=== PATIENT | male | born 1955 | race Caucasian/White ===

== ENCOUNTER → 2017-05-13 | Outpatient (CLI) | payer OTHER ==
[~2017-05-13] VITALS: Ht 170.2 cm; Wt 76.2 kg
[~2017-05-13] MED LIST: ASPIR 8181 M1 PO; ATORVASTATIN CA40 MG PO; NITROGLYCERIN0.4 MG PO; NORCO 5-325 TA1 EACH PO; PACERONE 200 M200 MG PO; TOPROL XL25 MG PO; XANAX 0.5 MG0.5 MG PO
--- NOTE | ~2017-05-13 | CATHLAB ---
[facility] [address] [place] [address] INVASIVE PROCEDURE REPORT Name: MARLIN COSBY Room #: REG Karyna#: [id number] Admission: 05/13/17 Attend Phys: Harish Minaya, Discharge: Date of : 53 Date of Service: 05/13/17 0938 Report #: [id number] THIS REPORT FOR: //name// APPROVED REPORT Patient Details Patient Status: Out-Patient Room #: The patient is a 61 year-old male Event Personnel Harish Minaya Cupola Tapper, Rita Muniz, Jevon Gunderson, Ever Acevedo RN, Laura Yang Procedures Performed Art Access - R femoral artery* 90991 Initial Mod Sed Same Phys/QHP Gr5y 987019 27744 Mod Sed Same Phys/QHP Ea [id number] Left Heart Cath w/or w/o Coronaries [id number] [facility] Hemostasis w/ Mynx Procedure Narrative The patient was brought electively to the Cardiac Catheterization Laboratory and was prepped and draped in a sterile manner. The Right Groin^ was infiltrated with 1% Lidocaine subcutaneous anesthesia. A PINNACLE 6FR Sheath #[id number] sheath was inserted into the RFA^. Coronary angiography was performed using coronary diagnostic catheters. The right coronary system was accessed and visualized with a JR 4 catheter. The left coronary system was accessed and visualized with a JL 4 catheter. The left ventricle was accessed and visualized with a Pigtail catheter. Left ventricular/Aortic Valve gradient assessed via catheter pullback. Left ventriculogram was performed in JACOME projection. Pre-demployment femoral angiogram was performed . Closure device was deployed with a 6 Fr Mynx. The patient tolerated the procedure well and there were no complications associated with the procedure. There was no hematoma. Intraoperative Conscious Sedation Sedation start time: 07:51 Case end Time: 08:24 Fentanyl 25.0 mcg Versed 1.5 mg Fluoro Time: 2.37 minutes Dose: DAP 4530.00 cGycm2 588 mGy Contrast Type and Amount: Omnipaque 150 ml Diagnostic Cath [address] [address] INVASIVE PROCEDURE REPORT Name: HARJEETNEYMARMARLIN LAURIE Room #: [id number] Admission: 05/13/17 Attend Phys: Harish Minaya, Discharge: Date of : 53 Date of Service: 05/13/17 0938 Report #: [id number] Left Main Eccentric 50-60% LM stenosis. Dampening with catheter engagement LAD Moderate size vessel extending to distal anterior wall. Mild-moderate mid LAD plaquing (30-40%) Diagonal 1 Mild proximal plaquing Circumflex Mild plaquing OM1 Moderate size, angiographically normal OM2 Moderate size, angiographically normal Right Coronary Large, dominant. 85% mid RCA stenosis 40-50% distal RCA stenosis prior to large PDA and PL branches R PDA Normal RPLV Mild plaquing Left Ventriculography The left ventricle is normal in size with contractility. The left ventricular ejection fraction is estimated to be 60-65%. Left ventricular wall motion abnormalities are not present. There is no mitral insufficiency. Hemodynamics The aortic pressure is 106/47 mmHg with a mean of 76 mmHg. The left ventricular pressure is 126/-3 mmHg with a mean of mmHg. The left ventricular end diastolic pressure is 8 mmHg. Conclusion 1. Normal global and regional systolic funciton. EF 65% 2. Eccentric 60% LM stenosis 3. LAD, Cx plaquing 4. 85% mid RCA stensosis (dominant) Recommendations CABG <ELECTRONICALLY SIGNED> By: Harish Minaya MD, FACC 05/13/17937 7 7 Harish Minaya MD, FACC /INF
--- NOTE | ~2017-05-13 | 2DMMODE ---
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 Room #: 3 Status: routine BSA: 1.88 HR: 70 bpm BP: 121/71 mmHg Other Information Study Quality: Adequate Indications CAD 2D Dimensions RVDd: 31.99 mm LVEF(%): 63.00 (>50%) IVSd: 10.42 (7-11mm) LVOT Diam: 20.73 (18-24mm) LVDd: 41.14 mm PWd: 9.04 (7-11mm) Ascending Ao: 28.35 (22-36mm) LVDs: 27.27 (25-40mm) Aortic Root: 30.68 mm IVC: 17.00 mm Howell's LVEF: 63.00 % Volumes Left Atrial Volume (Systole) Single Plane 4CH: 20.71 mL Single Plane 2CH: 20.73 mL LA ESV Index: 14.00 mL/m2 Aortic Valve AoV Peak Young.: 1.20 m/s AO Peak Gr.: 5.73 mmHg LVOT Max P.20 mmHg LVOT Max V: 1.02 m/s DORINDA Vmax: 2.89 cm2 Mitral Valve E/A Ratio: 1.1 MV Decel. Time: 238.54 ms MV E Max Young.: 0.76 m/s [facility] [place] [address] 2 D/M-MODE ECHOCARDIOGRAM Name: HARJEETMARLIN LAURIE Room #: [facility] Karyna#: [id number] Admission: 05/13/17 Attend Phys: Harish Minaya, Discharge: Date of : 53 Date of Service: 05/13/17 1158 Report #: [id number] MV A Young.: 0.67 m/s MV PHT: 69.18 ms IVRT: 96.89 ms Pulmonary Valve PV Peak Young.: 0.99 m/s PV Peak Gr.: 3.95 mmHg Pulmonary Vein P Vein S: 0.64 m/s P Vein A: 0.29 m/s P Vein D: 0.37 m/s P Vein A Dur.: 110.7 msec P Vein S/D Ratio: 1.73 Left Ventricle The left ventricle is normal size. There is normal LV segmental wall motion. There is normal left ventricular wall thickness. The left ventricular systolic function is normal. The left ventricular ejection fraction is within the normal range. LVEF is 60-65%. The left ventricular diastolic function is normal. Right Ventricle The right ventricle is normal size. The right ventricular systolic function is normal. Atria The left atrium size is normal. The right atrium size is normal. Aortic Valve The aortic valve is normal in structure. No aortic regurgitation is present. There is no aortic valvular stenosis. Mitral Valve The mitral valve is normal in structure. Trace mitral regurgitation. No evidence of mitral valve stenosis. Tricuspid Valve The tricuspid valve is normal in structure. There is no tricuspid valve regurgitation noted. Pulmonic Valve The pulmonary valve is normal in structure. There is no pulmonic valvular regurgitation. Great Vessels The aortic root is normal in size. IVC is normal in size and collapses >50% with inspiration. [facility] [address] [place] [address] 2 D/M-MODE ECHOCARDIOGRAM Name: MARLIN COSBY Room #: REG CL Karyna#: [id number] Admission: 05/13/17 Attend Phys: Harish Minaya, Discharge: Date of : 53 Date of Service: 05/13/17 1158 Report #: [id number] Pericardium There is no pericardial effusion. <Conclusion> The left ventricular systolic function is normal. There is normal LV segmental wall motion. LVEF is 60-65%. The aortic valve is normal in structure. No aortic regurgitationopr stenosis The mitral valve is normal in structure. Trace mitral regurgitation. Pulmonary artery pressure could not be reliably ascertained There is no pericardial effusion. <ELECTRONICALLY SIGNED> By: Harish Minaya MD, FACC 05/13/17 1158 1158 1158 Harish Minaya MD, FACC /INF
[2017-05-13 07:05] VITALS: BP 129/75
== END | disposition home or self-care (01) ==
LOC: CATH 06:33
DX: I25.10 Atherosclerotic heart disease of native coronary artery without angina pectoris (principal); I34.0 Nonrheumatic mitral (valve) insufficiency; I65.23 Occlusion and stenosis of bilateral carotid arteries; I11.9 Hypertensive heart disease without heart failure; E78.5 Hyperlipidemia, unspecified; F41.8 Other specified anxiety disorders; F17.210 Nicotine dependence, cigarettes, uncomplicated; Z98.890 Other specified postprocedural states; Z82.49 Family history of ischemic heart disease and other diseases of the circulatory system; Z79.82 Long term (current) use of aspirin; Z79.899 Other long term (current) drug therapy

== ENCOUNTER → 2017-05-25 | Outpatient (CLI) | payer OTHER ==
--- NOTE | ~2017-05-25 | HC ---
[facility] [address] CONSULTATION Name: MARLIN COSBY Room #: REG KAYLIN Karyna#: [id number] Admission: 05/25/17 Attend Phys: Cami Angulo Discharge: Date of : 53 Report #: [id number] THIS REPORT FOR: //name// CC: Cami Angulo [facility] physician/PCP Mirella Matthew MD REASON FOR CONSULTATION: Coronary artery disease. HISTORY OF PRESENT ILLNESS: The patient is a 61-year-old gentleman with a history of tobacco dependency, dyslipidemia and coronary artery disease. I originally saw him in early April with a recent history of exertional chest tightness. This also occurred under emotional stress and was associated with diaphoresis and shortness of breath. 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 Ultimately, coronary angiography was undertaken. This demonstrated normal left ventricular systolic function and eccentric left main stenosis of 60%, mild plaquing in the LAD and circumflex and 85% mid right coronary stenosis. Arrangements were made for surgical revascularization. The patient denies heart failure symptoms including orthopnea, paroxysmal nocturnal dyspnea or lower extremity edema. There is no history of diabetes or family history of premature coronary artery disease. ALLERGIES: PENICILLIN. MEDICATIONS: Atorvastatin 40 mg daily, metoprolol 50 mg daily, atorvastatin. PAST MEDICAL HISTORY: Medical records have been reviewed and include a history of wisdom tooth extraction, hypertension and dyslipidemia. SOCIAL HISTORY: Current smoker. He has a 83-skxd-gehs smoking history. Drinks 2-3 beers a day. FAMILY HISTORY: Mother with dementia. Father with heart disease. REVIEW OF SYSTEMS: All systems negative except as that noted above. PHYSICAL EXAMINATION: GENERAL: He is a pleasant gentleman in no distress. VITAL SIGNS: Blood pressure is 140/80, heart rate of 90 and regular, he is 5 feet 7 inches tall, 168 pounds. HEENT: There are neither xanthelasma, subcutaneous xanthomata, oral mucosal or digital cyanosis or kyphoscoliosis present. CHEST: Clear to auscultation and percussion. CARDIAC: Regular rate and rhythm with normal S1, S2. No murmurs, rubs. ABDOMEN: Soft and nontender. EXTREMITIES: Without pedal edema. Radial pulses are 2+. NEUROLOGIC: Alert with a nonfocal exam. [facility] [address] [place] [address] CONSULTATION Name: MARLIN COSBY Room #: REG SARAYJoseph Hahn.#: [id number] Admission: 05/25/17 Attend Phys: Cami Angulo Discharge: Date of : 53 Report #: [id number] LABORATORY DATA: Total cholesterol 298, LDL 207, triglycerides 294, HDL 31. IMAGING: EKG sinus rhythm with leftward axis, inferior T-wave abnormality. IMPRESSION: 1. Coronary artery disease including left main stenosis. 2. Dyslipidemia. 3. Hypertension. 4. Tobacco dependency. RECOMMENDATIONS: 1. Perioperative beta blockade. Continued efforts towards aggressive risk factor modification including smoking cessation. 2. I will follow along with you in the becca-procedural setting. Thank you for asking me to participate in the patient's care. <ELECTRONICALLY SIGNED> By: Harish Minaya MD, FACC 06/07/17 1623 1703 2235 Harish Minaya MD, FACC /nt
--- NOTE | ~2017-05-25 | EKG ---
[place] [address] [address] [place] [address] ELECTROCARDIOGRAM REPORT Name: HARJEETNEYMARMARLIN LAURIE Room #: REG KAYLIN [place]#: [id number] Admission: 05/25/17 Attend Phys: Cami Angulo Discharge: Date of : 53 Report #: [id number] THIS REPORT FOR: //name// [facility] Test Date: 2017-05-25 Test Time: 09:22:47 Pat Name: MARLIN COSBY Department: Room: Gender: M Freight Rate Analyst: blanca : 1955 Requested By: Rene Olivarez Order Number: [id number] MD: Harish Minaya Measurements Intervals [place] Rate: 58 P: 46 VT: 148 QRS: -34 QRSD: 99 T: -18 QT: 408 QTc: 401 Interpretive Statements Sinus bradycardia Left axis deviation Nonspecific T wave abnormality No previous ECG available for comparison Electronically Signed On 05-25-2017 18:26:21 PRINTING AND STAMPING SUPERVISOR by Harish Minaya [email or web address] <ELECTRONICALLY SIGNED> By: Harish Minaya MD, [facility] 05/25/17 1826 0922 09 Harish Minaya MD, FACC /EPI
== END ==
LOC: ULTRA 08:04
DX: Z01.818 Encounter for other preprocedural examination (principal)

== ENCOUNTER 2017-05-30 05:27 | Inpatient (IN) | payer OTHER ==
[2017-05-25 09:27] LABS: ABSOLUTE NEUTROPHILS 6.5 thou/uL (1.4-8.2); BASOPHILS 0.9 % (0.0-2.0); EOSINOPHILS 1.2 % (0.0-3.0); HEMATOCRIT 49.4 % (42.0-52.0); HEMOGLOBIN 17.3 gm/dL (14.0-18.0); LYMPHOCYTES 31.7 % (24.0-44.0); MCH 33.7 pg (26.0-34.0); MCV 96.3 fL (80.0-100.0); MONOCYTES 7.2 % (1.0-8.0); PLATELET COUNT 309 thou/uL (150-400); RBC 5.13 mil/uL (4.50-6.00); RDW 12.9 % (10.5-14.5); WBC 10.9 thou/uL (4.0-11.0)
[2017-05-25 09:29] LABS: URINE BILIRUBIN NEGATIVE (Negative); URINE BLOOD NEGATIVE (Negative); URINE CLARITY CLEAR; URINE COLOR YELLOW; URINE GLUCOSE-RANDOM* NEGATIVE (Negative); URINE KETONES NEGATIVE (Negative); URINE LEUKOCYTES-REFLEX NEGATIVE (Negative); URINE NITRITE-REFLEX NEGATIVE (Negative); URINE PROTEIN (DIPSTICK) NEGATIVE (Negative); URINE UROBILINOGEN 0.2 E.U./dl (0.2-1.0)
[2017-05-25 09:39] LABS: APTT 31.1 Seconds (24.5-32.8); PROTIME 10.7 Seconds (9.3-11.4)
[2017-05-25 09:47] LABS: ALBUMIN 3.8 g/dL (3.4-5.0); CALCIUM 9.1 mg/dL (8.5-10.1); POTASSIUM 4.5 mmol/L (3.5-5.1); TOTAL BILIRUBIN 0.6 mg/dL (<0.1-1.0)
[2017-05-26 04:11] LABS: GLYCOHEMOGLOBIN (HGB A1C) 5.6 % (4.8-5.6)
[~2017-05-30] VITALS: Ht 170.2 cm; Wt 78.9 kg
--- NOTE | ~2017-05-30 | EKG ---
[address] [place] [address] ELECTROCARDIOGRAM REPORT Name: MARLIN COSBY Room #: 245-P ADM IN M.R.#: [id number] Admission: 05/31/17 Attend Phys: Rene Olivarez MD Discharge: Date of : 53 Report #: [id number] THIS REPORT FOR: //name// [facility] Test Date: 2017-06-01 Test Time: 23:17:48 Pat Name: MARLIN COSBY Department: Room: [facility] Gender: M Research Support Specialist: sergiok : 1955 Requested By: Joselo Lay Order Number: [id number] MD: Harish Minaya Measurements Intervals [place] Rate: 98 P: 14 SC: 138 QRS: -35 QRSD: 86 T: -4 QT: 343 QTc: 438 Interpretive Statements Sinus rhythm Left axis deviation Borderline T wave abnormalities Compared to ECG 06/01/2017 06:03:46 Left-axis deviation now present Atrial premature complex(es) no longer present Electronically Signed On 06-02-2017 8:13:27 RECEPTIONIST NURSE by Harish Minaya [email or web address] <ELECTRONICALLY SIGNED> By: Harish Minaya MD, [facility] 06/02/17 0813 2317 2317 Harish Minaya MD, [facility] /EPI
--- NOTE | ~2017-05-30 | EKG ---
[address] [place] [address] ELECTROCARDIOGRAM REPORT Name: MARLIN COSBY Room #: 245-P ADM IN M.R.#: [id number] Admission: 05/31/17 Attend Phys: Rene Olivarez MD Discharge: Date of : 53 Report #: [id number] THIS REPORT FOR: //name// [facility] Test Date: 2017-06-01 Test Time: 06:03:46 Pat Name: MARLIN COSBY Department: Room: 245 P Gender: M Wireless Cellular Technician: RADHA : 1955 Requested By: Cami Angulo Order Number: [id number] MD: Harish Minaya Measurements Intervals [place] Rate: 76 P: 25 WI: 136 QRS: -14 QRSD: 103 T: -45 QT: 431 QTc: 485 Interpretive Statements Sinus rhythm Atrial premature complex Nonspecific T abnormalities, diffuse leads Borderline prolonged QT interval Compared to ECG 05/25/2017 09:22:47 Atrial premature complex(es) now present Sinus bradycardia no longer present Left-axis deviation no longer present Electronically Signed On 06-01-2017 9:09:23 TRIMMER CLIMBER by Harish Minaya [email or web address] <ELECTRONICALLY SIGNED> By: Harish Minaya MD, [facility] 06/01/1709 2 2 Harish Minaya MD, [facility] /EPI
--- NOTE | ~2017-05-30 | O ---
[facility] [place] [address] OPERATIVE REPORT Name: MARLIN COSBY Room #: 203-P [facility] IN M.R.#: [id number] Admission: 05/31/17 Attend Phys: Rene Olivarez MD Discharge: 06/05/17 Date of : 53 Report #: [id number] THIS REPORT FOR: //name// CC: Harish Minaya MD [facility] unknown Rene Olivarez DATE OF SERVICE: 05/31/2017 PREOPERATIVE DIAGNOSES: Coronary artery disease, angina, normal left ventricular systolic function. FINAL DIAGNOSES: Coronary artery disease, angina, normal left ventricular systolic function. OPERATIVE PROCEDURE PERFORMED: 1. Coronary artery bypass grafting x 4 with left internal mammary artery to the LAD, radial artery Y graft to diagonal vessel, saphenous vein graft to OM, and the radial artery graft to PDA. 2. Left radial artery harvest. SURGEON: Rene Olivarez MD. JUTE BAG CLIPPER: Jose Dobbs and BETTY Fowler. ANESTHESIA: General. OPERATIVE INDICATIONS: The patient is a 61-year-old male who has presented with symptoms of exertional angina. He has a history of hypertension and hyperlipidemia. His evaluation was performed including left heart catheterization noting evidence of multivessel coronary artery disease and left main coronary artery disease. The patient is admitted at this time and brought to the operating room now for coronary artery bypass grafting. OPERATIVE SUMMARY: The patient was brought to the operating room, placed on the OR table in supine position. After anesthesia was induced via general endotracheal route and monitoring lines have been positioned, the patient was prepped and draped in sterile fashion with chlorhexidine. I first harvested radial artery from the left forearm using a Harmonic scalpel. Concomitantly, saphenous vein was harvested from left lower extremity using endoscopic technique. A median sternotomy incision was then performed. The left internal mammary artery was harvested in standard fashion. I then placed a sternal retractor, opened the pericardium and systemically anticoagulated the patient with heparin. Cannulae were placed in ascending aorta and the right atrium. An antegrade cardioplegic cannula was positioned and cardiopulmonary bypass was begun. A retrograde cardioplegic cannula was positioned and then under low flow [facility] [address] [place] [address] OPERATIVE REPORT Name: HARJEETNEYMARMARLINLESLEY SULLIVNA Room #: 203-P [facility] IN .R.#: [id number] Admission: 05/31/17 Attend Phys: Rene Olivarez MD Discharge: 06/05/17 Date of : 53 Report #: [id number] conditions, the aorta was crossclamped and the heart was arrested with approximately 1 liter of warm antegrade cold cardioplegia, followed by 500 mL cold retrograde cardioplegia. This was augmented with topical ice slush. Diastolic arrest was achieved and maintained throughout this operation with intermittent doses of cold antegrade and retrograde cardioplegia as well as cardioplegia given down grafts and topical ice slush. We first opened up the PDA vessel. This is a large vessel and close to 2 mm in size. A distal anastomosis was carried out in end-to-side fashion with 7-0 Prolene utilizing the radial artery. Next, we opened up the obtuse marginal vessel, a small vessel, 1.5 mm at best. A distal anastomosis was performed in end-to-side fashion using reverse saphenous vein graft. The reverse saphenous vein graft was brought around to the ascending aorta in a proximal fashion with 6-0 Prolene after a 4.8 punch aortotomy was created. Next, we opened up the diagonal vessel. We sewed on to it a remaining segment of radial artery using 7-0 Prolene. The mammary was then brought into the field and prepared for anastomosis. It was of good size and had good flow. The internal mammary artery was anastomosed to the LAD in the distal aspect of its mid segment. This was done with 7-0 Prolene. The pedicle was tacked to the epicardium with 6-0 Prolene. Next, we performed an anastomosis of the radial artery segment to the diagonal vessel to the left internal mammary artery. This was performed with 7-0 Prolene. We then gave warm cardioplegia both retrograde and antegrade. Care was taken to deair the ascending aorta and the vein graft and the arterial graft. Under low flow conditions, the aortic crossclamp was released to begin the period of reperfusion. The patient was rewarmed to 37 degree centigrade. Atrial and ventricular pacing wires were placed and we gave 3 successive doses of calcium and a single dose of magnesium all over 3-5 minute intervals. After defibrillation, the patient returned to sinus bradycardia and required atrial pacing at a rate of 80. After a suitable period of reperfusion, the lungs were reinflated. The patient was weaned from cardiopulmonary bypass without inotropic support. Protamine was given to reverse the heparin, decannulation was effected. Once satisfactory hemostasis was achieved, we placed 2 32-Singaporean chest tubes in anterior mediastinum and 24 Myke drain in left pleural space. They were all brought out through separate stab incisions. The sternum was closed with #7 wire. The fascia, subcutaneous and skin were closed in multiple layers with absorbable suture. The procedure was completed. The patient was taken to the CV ICU in stable condition. The cardiopulmonary bypass time is listed at 154 minutes. CROSS CLAMP TIME: 132 minutes. <ELECTRONICALLY SIGNED> By: Rene Olivarez MD 06/21/17 1746 1552 1727 Rene Olivarez MD /valentin
[~2017-05-30 05:27] MED LIST changes: -NORCO 5-325 TA1 EACH PO; -PACERONE 200 M200 MG PO
[2017-05-31 07:37] VITALS: BP 141/80
[2017-05-31 13:06] LABS: MCH 33.4 pg (26.0-34.0); MCHC 34.5 g/dL (28.0-37.0); MCV 96.8 fL (80.0-100.0); RBC 3.4 mil/uL (4.50-6.00); RDW 12.6 % (10.5-14.5); WBC 17.2 thou/uL (4.0-11.0)
[2017-05-31 13:07] LABS: HEMATOCRIT 32.9 % (42.0-52.0); HEMOGLOBIN 11.4 gm/dL (14.0-18.0)
[2017-05-31 13:28] LABS: INR 1.4; PROTIME 14.7 Seconds (9.3-11.4)
[2017-05-31 13:29] LABS: APTT 24.9 Seconds (24.5-32.8); FIBRINOGEN 166.8 mg/dL (210-360)
[2017-05-31 13:48] LABS: POC BE 1 mmol/L (-2.0 to +3.0); POC CA IONIZED 4.6 mg/dL (4.5-5.3); POC GLUCOSE 106 mg/dL (70-99); POC HCO3 25.8 mmol/L (22.0-26.0); POC HEMOGLOBIN 15.3 g/dL (14.0-18.0); POC POTASSIUM 4.8 mmol/L (3.5-5.1); POC SODIUM 137 mmol/L (136-145); POC pCO2 40.4 mmHg (35.0-45.0); POC pH 7.413 (7.360-7.450)
[2017-05-31 13:48] LABS: POC BE -2 mmol/L (-2.0 to +3.0); POC CA IONIZED 4.2 mg/dL (4.5-5.3); POC GLUCOSE 122 mg/dL (70-99); POC HEMOGLOBIN 14.6 g/dL (14.0-18.0); POC POTASSIUM 5.1 mmol/L (3.5-5.1); POC SODIUM 137 mmol/L (136-145); POC pCO2 36.6 mmHg (35.0-45.0); POC pH 7.407 (7.360-7.450)
[2017-05-31 13:53] LABS: POC BE 0 mmol/L (-2.0 to +3.0); POC CA IONIZED 7.8 mg/dL (4.5-5.3); POC GLUCOSE 118 mg/dL (70-99); POC HEMOGLOBIN 10.2 g/dL (14.0-18.0); POC POTASSIUM 4.3 mmol/L (3.5-5.1); POC SODIUM 138 mmol/L (136-145); POC pCO2 38.7 mmHg (35.0-45.0); POC pH 7.417 (7.360-7.450)
[2017-05-31 13:53] LABS: POC BE -1 mmol/L (-2.0 to +3.0); POC GLUCOSE 151 mg/dL (70-99); POC HCO3 24.9 mmol/L (22.0-26.0); POC HEMOGLOBIN 11.2 g/dL (14.0-18.0); POC POTASSIUM 6.1 mmol/L (3.5-5.1); POC SODIUM 136 mmol/L (136-145)
[2017-05-31 13:53] LABS: POC BE 1 mmol/L (-2.0 to +3.0); POC CA IONIZED 3.9 mg/dL (4.5-5.3); POC GLUCOSE 146 mg/dL (70-99); POC HCO3 26.4 mmol/L (22.0-26.0); POC HEMOGLOBIN 10.9 g/dL (14.0-18.0); POC POTASSIUM 5.4 mmol/L (3.5-5.1); POC SODIUM 138 mmol/L (136-145); POC pCO2 45.8 mmHg (35.0-45.0)
[2017-05-31 13:53] LABS: POC BE -2 mmol/L (-2.0 to +3.0); POC CA IONIZED 3.9 mg/dL (4.5-5.3); POC GLUCOSE 159 mg/dL (70-99); POC HCO3 23.9 mmol/L (22.0-26.0); POC HEMOGLOBIN 10.5 g/dL (14.0-18.0); POC SODIUM 134 mmol/L (136-145); POC pCO2 44.8 mmHg (35.0-45.0); POC pH 7.336 (7.360-7.450)
[2017-05-31 13:53] LABS: POC BE -1 mmol/L (-2.0 to +3.0); POC GLUCOSE 174 mg/dL (70-99); POC HCO3 24.8 mmol/L (22.0-26.0); POC HEMOGLOBIN 11.2 g/dL (14.0-18.0); POC POTASSIUM 6.1 mmol/L (3.5-5.1); POC SODIUM 136 mmol/L (136-145); POC pH 7.349 (7.360-7.450)
[2017-05-31 13:53] LABS: POC BE -4 mmol/L (-2.0 to +3.0); POC CA IONIZED 3.8 mg/dL (4.5-5.3); POC GLUCOSE 120 mg/dL (70-99); POC HCO3 21.7 mmol/L (22.0-26.0); POC HEMOGLOBIN 11.2 g/dL (14.0-18.0); POC POTASSIUM 6.1 mmol/L (3.5-5.1); POC SODIUM 136 mmol/L (136-145); POC pH 7.364 (7.360-7.450)
[2017-05-31 13:53] LABS: POC BE -1 mmol/L (-2.0 to +3.0); POC CA IONIZED 3.8 mg/dL (4.5-5.3); POC GLUCOSE 120 mg/dL (70-99); POC HCO3 24.2 mmol/L (22.0-26.0); POC HEMOGLOBIN 11.2 g/dL (14.0-18.0); POC POTASSIUM 6.1 mmol/L (3.5-5.1); POC SODIUM 136 mmol/L (136-145); POC pCO2 40.9 mmHg (35.0-45.0); POC pH 7.381 (7.360-7.450)
[2017-05-31 13:53] LABS: POC BE 0 mmol/L (-2.0 to +3.0); POC CA IONIZED 6.5 mg/dL (4.5-5.3); POC GLUCOSE 86 mg/dL (70-99); POC HEMOGLOBIN 11.6 g/dL (14.0-18.0); POC POTASSIUM 3.8 mmol/L (3.5-5.1); POC SODIUM 140 mmol/L (136-145); POC pCO2 39.3 mmHg (35.0-45.0); POC pH 7.412 (7.360-7.450)
[2017-05-31 14:20] LABS: HEMATOCRIT 39.5 % (42.0-52.0); MCH 32.8 pg (26.0-34.0); MCV 96.5 fL (80.0-100.0); RBC 4.09 mil/uL (4.50-6.00); RDW 12.6 % (10.5-14.5); WBC 18.4 thou/uL (4.0-11.0)
[2017-05-31 14:21] LABS: HEMOGLOBIN 13.4 gm/dL (14.0-18.0)
[2017-05-31 14:29] LABS: PCO2 32.7 mmHg (35.0-45.0); PO2 100.2 mmHg (80.0-100.0); pH 7.383 (7.360-7.450); sO2 97.6 % (92.0-98.0)
[2017-05-31 14:33] LABS: CREATININE 1.2 mg/dL (0.7-1.3); MAGNESIUM 2.7 mg/dL (1.8-2.4); POTASSIUM 3.9 mmol/L (3.5-5.1)
[2017-05-31 14:34] LABS: APTT 26.7 Seconds (24.5-32.8); INR 1.2
[2017-05-31 19:38] LABS: BE(vivo) -4.1 mmol/L (-2 to +3); HCO3 20.8 mmol/L (22.0-26.0); PCO2 38.1 mmHg (35.0-45.0); PO2 90.8 mmHg (80.0-100.0); pH 7.356 (7.360-7.450); sO2 96.7 % (92.0-98.0)
[2017-05-31 21:15] LABS: BE(vivo) -6.1 mmol/L (-2 to +3); HCO3 19.6 mmol/L (22.0-26.0); PCO2 39.5 mmHg (35.0-45.0); PO2 82.7 mmHg (80.0-100.0); pH 7.314 (7.360-7.450); sO2 95.3 % (92.0-98.0)
[2017-05-31 22:10] LABS: BE(vivo) -5.6 mmol/L (-2 to +3); HCO3 19.7 mmol/L (22.0-26.0); PCO2 37.7 mmHg (35.0-45.0); PO2 71.7 mmHg (80.0-100.0); pH 7.335 (7.360-7.450); sO2 93.6 % (92.0-98.0)
[2017-06-01] VITALS (7 sets, daily range): BP systolic 102–136; BP diastolic 63–76
[2017-06-01 05:51] LABS: HEMATOCRIT 39.7 % (42.0-52.0); HEMOGLOBIN 13.4 gm/dL (14.0-18.0); MCH 32.9 pg (26.0-34.0); MCHC 33.7 g/dL (28.0-37.0); MCV 97.6 fL (80.0-100.0); RBC 4.07 mil/uL (4.50-6.00); RDW 13.1 % (10.5-14.5); WBC 21.5 thou/uL (4.0-11.0)
[2017-06-01 06:02] LABS: PROTIME 10.7 Seconds (9.3-11.4)
[2017-06-01 06:04] LABS: CALCIUM 9.1 mg/dL (8.5-10.1); CREATININE 1.2 mg/dL (0.7-1.3); MAGNESIUM 1.9 mg/dL (1.8-2.4)
[2017-06-02] VITALS (19 sets, daily range): BP systolic 100–147; BP diastolic 55–96
[2017-06-02 07:17] LABS: HEMATOCRIT 33.5 % (42.0-52.0); HEMOGLOBIN 11.6 gm/dL (14.0-18.0); MCH 33.4 pg (26.0-34.0); MCHC 34.6 g/dL (28.0-37.0); MCV 96.6 fL (80.0-100.0); RBC 3.47 mil/uL (4.50-6.00)
[2017-06-02 07:34] LABS: CALCIUM 8.2 mg/dL (8.5-10.1); CREATININE 1.2 mg/dL (0.7-1.3); POTASSIUM 4.1 mmol/L (3.5-5.1)
[2017-06-03 02:35] VITALS: BP 129/75
[2017-06-03 04:32] VITALS: BP 127/77
[2017-06-03 07:17] VITALS: BP 127/78
[2017-06-03 11:05] VITALS: BP 117/66
[2017-06-03] MEDS ORDERED: NORCO 5-325 TA1 EACH PO (12:52)
[2017-06-03] MEDS ORDERED: PACERONE 200 M200 MG PO (12:53)
[2017-06-03 15:21] VITALS: BP 120/58
[2017-06-03 19:55] VITALS: BP 127/64
[2017-06-04 04:44] VITALS: BP 139/73
[2017-06-04 08:00] VITALS: BP 138/95
[2017-06-04 10:58] VITALS: BP 138/95
[2017-06-04 11:05] VITALS: BP 138/95
[2017-06-04 16:00] VITALS: BP 123/76
[2017-06-04 23:59] VITALS: BP 139/89
[2017-06-05 04:33] VITALS: BP 146/78
[2017-06-05 09:45] VITALS: BP 132/94
[2017-06-05 12:55] VITALS: BP 142/84
== END 2017-06-05 14:00 | disposition home or self-care (01) | DRG 234 ==
LOC: PRE 05:27 → TBA 05:31 → ICU 09:16 → PRE 10:13 → ICU 05-31 05:25 → TBA 05-31 05:25 → ICU 05-31 14:15 → PRE 05-31 14:17 → 2N 06-01 18:33 → ICU 06-02 01:40 → 2N 06-02 17:50
PROVIDERS: Nurse Practitioner; Thoracic Surgery (Cardiothoracic Vascular Surgery)
DX: I25.119 Atherosclerotic heart disease of native coronary artery with unspecified angina pectoris (principal); I10 Essential (primary) hypertension; E78.5 Hyperlipidemia, unspecified; R73.9 Hyperglycemia, unspecified; F17.200 Nicotine dependence, unspecified, uncomplicated; R33.9 Retention of urine, unspecified; I48.0 Paroxysmal atrial fibrillation; N40.0 Benign prostatic hyperplasia without lower urinary tract symptoms; Z88.0 Allergy status to penicillin; Z71.6 Tobacco abuse counseling; Z88.8 Allergy status to other drugs, medicaments and biological substances
CPT/HCPCS: 10078; 10081; 10797; 47000; 47001; 47002; 47297; 48888; 50249; 50409; 50456; 50497; 50662; 50668; 51301; 52131; 52314; 53327; 53358; 54118; 56524; 56525; 56526; 56527; 56528; 56529; 56531; 56534; 56639; 57093; 62110; 62950; 83006

== ENCOUNTER → 2017-06-22 | Outpatient (CLI) | payer OTHER ==
[~2017-06-22] MED LIST changes: +NORCO 5-325 TA1 EACH PO; +PACERONE 200 M200 MG PO
== END ==
LOC: RAD 08:51
DX: I25.10 Atherosclerotic heart disease of native coronary artery without angina pectoris (principal); J90 Pleural effusion, not elsewhere classified; I51.7 Cardiomegaly; J98.11 Atelectasis; Z95.1 Presence of aortocoronary bypass graft

== ENCOUNTER → 2020-02-12 | Outpatient (CLI) | payer OTHER, MEDICARE | LOC: SJCVC 13:05 | PROVIDERS: ATTEND Internal Medicine | DX: R94.31 Abnormal electrocardiogram [ECG] [EKG] (principal); I25.10 Atherosclerotic heart disease of native coronary artery without angina pectoris; R00.1 Bradycardia, unspecified; I10 Essential (primary) hypertension; E78.5 Hyperlipidemia, unspecified; Z95.1 Presence of aortocoronary bypass graft ==

== ENCOUNTER → 2020-08-13 | Outpatient (CLI) | payer OTHER, MEDICARE | LOC: SJCVC 10:26 | PROVIDERS: ATTEND Internal Medicine | DX: R94.31 Abnormal electrocardiogram [ECG] [EKG] (principal); R00.1 Bradycardia, unspecified; I25.10 Atherosclerotic heart disease of native coronary artery without angina pectoris; I10 Essential (primary) hypertension; E78.5 Hyperlipidemia, unspecified; I48.0 Paroxysmal atrial fibrillation; Z95.1 Presence of aortocoronary bypass graft; Z88.0 Allergy status to penicillin; Z79.82 Long term (current) use of aspirin; Z79.899 Other long term (current) drug therapy; Z87.891 Personal history of nicotine dependence; Z82.49 Family history of ischemic heart disease and other diseases of the circulatory system ==

== ENCOUNTER → 2021-02-17 | Outpatient (CLI) | payer OTHER, MEDICARE | LOC: SJCVC 10:23 | PROVIDERS: ATTEND Internal Medicine | DX: R94.31 Abnormal electrocardiogram [ECG] [EKG] (principal); R00.1 Bradycardia, unspecified; I25.10 Atherosclerotic heart disease of native coronary artery without angina pectoris; I10 Essential (primary) hypertension; E78.5 Hyperlipidemia, unspecified; F41.9 Anxiety disorder, unspecified; F12.90 Cannabis use, unspecified, uncomplicated; Z95.1 Presence of aortocoronary bypass graft; Z87.891 Personal history of nicotine dependence; Z79.82 Long term (current) use of aspirin; Z79.899 Other long term (current) drug therapy; Z72.89 Other problems related to lifestyle; Z88.0 Allergy status to penicillin ==